=== PATIENT | male | born 1970 | race Caucasian/White ===

== ENCOUNTER 2016-08-27 11:09 | Emergency (ER) | payer OTHER ==
[~2016-08-27] VITALS: Ht 180.3 cm; Wt 81.8 kg
[2016-08-27 11:10] VITALS: TEMP 98
[2016-08-27] MEDS ORDERED: ULTRAM 50MG TAB50 MG PO (12:40)
[2016-08-27] MEDS ORDERED: ATARAX 25MG25 MG/TAB PO (12:40)
[2016-08-27 12:48] VITALS: BP 124/84; PULSE 70
== END 2016-08-27 12:49 | disposition home or self-care (01) ==
LOC: COL.ER 11:09
DX: S09.90XA Unspecified injury of head, initial encounter (principal); S16.1XXA Strain of muscle, fascia and tendon at neck level, initial encounter; S00.01XA Abrasion of scalp, initial encounter; W22.8XXA Striking against or struck by other objects, initial encounter; F41.9 Anxiety disorder, unspecified